=== PATIENT | male | born 1995 | race Asian ===

== ENCOUNTER → 2019-12-11 | Outpatient (CLI) | payer OTHER ==
[~2019-12-11] VITALS: Ht 190.5 cm; Wt 113.4 kg
== END | disposition home or self-care (01) ==
LOC: CA 10:00 → OR 12-13 07:30 → EDSTATUS 12-13 07:30 → DS 12-13 07:30
PROVIDERS: ATTEND Urology
DX: N20.0 Calculus of kidney (principal)